=== PATIENT | female | born 1995 | race Caucasian/White ===

== ENCOUNTER 2017-09-06 08:52 | Emergency (ER) | payer MEDICAID, OTHER ==
[2017-09-06 08:52] VITALS: BMI 23.1
[2017-09-06 08:57] VITALS: TEMP 98.2
[2017-09-06] MEDS ORDERED: Sodium Chloride 0.9% 1,000 ML IV ONE (09:28)
[2017-09-06] MEDS ORDERED: Aluminum Hydroxide/Magnesium Hydroxide Susp (30 mL) PO STA (09:28)
[2017-09-06] MEDS ORDERED: Belladonna-Phenobarbital PO STA (09:28)
[2017-09-06 09:46] LABS: BASO % 0.4 % (0.0-2.0); EOS # 0.1 K/uL (0.0-0.7); EOS % 1.4 % (0.0-4.0); HEMOGLOBIN 12.9 g/dL (11.0-16.0); LYMPH # 2.2 K/uL (1.0-4.3); LYMPH % 34.1 % (20.0-40.0); MEAN CELL VOLUME 81.9 fL (81.0-99.0); MEAN CORPUSCULAR HEMOGLOBIN 28.6 pg (27.0-31.0); MEAN PLATELET VOLUME 7.6 fL (7.2-11.7); MONO # 0.4 K/uL (0.0-0.8); NEUT # 3.7 K/uL (1.8-7.0); NEUT % 58.1 % (50.0-75.0); NRBC % 0.1 % (0.0-2.0); RBC 4.52 Mil/uL (3.80-5.20); RED CELL DISTRIBUTION WIDTH 13.4 % (11.5-14.5); WHITE BLOOD COUNT 6.3 K/uL (4.8-10.8)
[2017-09-06] MEDS ORDERED: Sodium Chloride 0.9% 1,000 ML ONE (09:46)
[2017-09-06] MEDS ORDERED: Aluminum Hydroxide/Magnesium Hydroxide Susp (30 mL) ONE (09:46)
[2017-09-06] MEDS ORDERED: Belladonna-Phenobarbital ONE (09:46)
[2017-09-06 09:56] LABS: SQUAMOUS EPITHIAL 4 /hpf (0-5); URINE BILIRUBIN NEGATIVE (NEGATIVE); URINE BLOOD NEGATIVE (NEGATIVE); URINE CLARITY Hazy (Clear); URINE COLOR Yellow (YELLOW); URINE GLUCOSE (UA) NORMAL (Normal); URINE LEUKOCYTE ESTERASE NEG Leu/uL (Negative); URINE PROTEIN NEGATIVE (NEGATIVE); URINE UROBILINOGEN NORMAL mg/dL (0.2-1.0)
[2017-09-06 09:59] LABS: HCG,QUALITATIVE URINE NEGATIVE (NEGATIVE)
[2017-09-06 10:02] LABS: ALB/GLOB RATIO 1.2 (1.0-2.1); ALBUMIN 4.1 g/dL (3.5-5.0); ALT/SGPT 17 U/L (9-52); AST/SGOT 19 U/L (14-36); BLOOD UREA NITROGEN 7 mg/dL (7-17); CALCIUM 9.4 mg/dl (8.6-10.4); GFR AFRICAN-AMERICAN > 60; GFR NON-AFRICAN AMERICAN > 60; LIPASE 185 U/L (23-300)
--- NOTE | 2017-09-06 10:03 | C.PDOC ---
History Of Present Illness <Lashell Booth - Last Filed: 09/06/17 16:42> <Bimal Mayberry - Last Filed: 09/08/17 14:29> 22 years old female presents to ED for complaints of epigastric abdominal pain associated with nausea that began yesterday. Patient describes pain as burning, sharp and non radiating. Denies vomiting, fever, diarrhea, or urinary symptoms. 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 ( Lashell Booth) History Per: Patient History/Exam Limitations: no limitations Onset/Duration Of Symptoms: Hrs Current Symptoms Are (Timing): Still Present Location Of Pain/Discomfort: Epigastric Radiation Of Pain To:: None Quality Of Discomfort: Sharp, Burning Associated Symptoms: Nausea. denies: Fever, Chills, Vomiting, Diarrhea, Constipation, Urinary Symptoms Exacerbating Factors: None Alleviating Factors: None Last Bowel Movement: Today Recent travel outside of the [place]: No Abnormal Vaginal Bleeding: No <Lashell Booth - Last Filed: 09/06/17 16:42> <Bimal Mayberry - Last Filed: 09/08/17 14:29> Time Seen by Provider: 09/06/17 09:20 Chief Complaint (Nursing): Abdominal Pain Past Medical History Reviewed: Historical Data, Nursing Documentation, Vital Signs - Medical History PMH: No Chronic Diseases Family History: States: Unknown Family Hx - Social History Hx Tobacco Use: No Hx Alcohol Use: No Hx Substance Use: No - Immunization History Hx Tetanus Toxoid Vaccination: No Hx Influenza Vaccination: No Hx Pneumococcal Vaccination: No <Lashell Booth - Last Filed: 09/06/17 16:42> Vital Signs: Last Vital Signs Temp 98.2 F 09/06/17 08:54 Pulse 53 L 09/06/17 11:26 Resp 18 09/06/17 11:26 BP 106/62 09/06/17 11:26 Pulse Ox 99 09/06/17 16:44 - [facility] Procedures APPLICATION OF SPLINT (02/21/14) CLOSURE SKIN & SUBCUTANEOUS NEC (03/07/14) EXTRACTION OF POC, LOW CERVICAL, OPEN APPROACH (06/26/15) INTRODUCE OF OTH THERAP SUBST INTO FEM REPROD, VIA OPENING (06/26/15) Review Of Systems Constitutional: Negative for: Fever, Chills Gastrointestinal: Positive for: Nausea, Abdominal Pain (Epigastric ), Constipation. Negative for: Vomiting, Diarrhea, Rectal Pain Genitourinary: Negative for: Dysuria Skin: Negative for: Rash Neurological: Negative for: Weakness, Numbness <BoothLashell campa David - Last Filed: 09/06/17 16:42> Physical Exam - Physical Exam Appears: Well, Non-toxic, No Acute Distress Skin: Warm, Dry, No Rash Head: Atraumatic, Normacephalic Eye(s): bilateral: Normal Inspection, PERRL, EOMI Oral Mucosa: Moist Neck: Normal ROM Chest: Symmetrical, No Tenderness Cardiovascular: Rhythm Regular, No Murmur Respiratory: Normal Breath Sounds, No Decreased Breath Sounds, No Rales, No Rhonchi, No Wheezing Gastrointestinal/Abdominal: Bowel Sounds (Active), Soft, Tenderness (Mild of epigastric region with deep palpation), No Guarding Back: No CVA Tenderness Extremity: Normal ROM Extremity: Bilateral: Atraumatic, Normal Color And Temperature, Normal ROM Neurological/Psych: Oriented x3, Normal Speech Gait: Steady <LeobardoLashell L - Last Filed: 09/06/17 16:42> ED Course And Treatment - Laboratory Results Result Diagrams: 09/06/17 09:42 09/06/17 09:42 O2 Sat by Pulse Oximetry: 99 (RA) Pulse Ox Interpretation: Normal <Lashell Booth - Last Filed: 09/06/17 16:42> - Laboratory Results Result Diagrams: 09/06/17 09:42 09/06/17 09:42 <Bimal Mayberry - Last Filed: 09/08/17 14:29> Medical Decision Making: Impression: epigastric abdominal pain Plan: * Labs * Urine analysis * GI Cocktail, IV NS Progress: Labs reviewed showing no acute findings. No leukocytosis or electrolyte abnormality. Urine clear and negative Patient remained afebrile alert and oriented with stable vital signs during ER evaluation. Discussed results with patient, and copy of report was provided. On re-examination, patient is resting comfortably in no acute distress. Patient reports improvement of symptoms. Patient feels comfortable going home and will be discharged. Patient given follow up instructions. Instructed to return to ER if symptoms worsen or new symptoms arise. (Lashell Booth) Disposition Counseled Patient/Family Regarding: Diagnosis, Need For Followup, Rx Given - Disposition Disposition Time: 10:29 - POA Present On Arrival: None <Lashell Booth - Last Filed: 09/06/17 16:42> <Bimal Mayberry - Last Filed: 09/08/17 14:29> - Disposition Referrals: Lisa Mcmullen MD [Non-Staff] - Disposition: HOME/ ROUTINE Condition: IMPROVED Additional Instructions: Vaya a bennett mdico o la clnica en 2-5 rodrigues sin falta, para mas evaluacin. [place] los medicamentos paulo indicado. Volver a la kristine de emergencia en cualquier momento si los sntomas persisten o empeoran. Prescriptions: Famotidine [Pepcid] 20 mg PO DAILY #20 tab Polyethylene Glycol 3350 [Miralax] 17 gm PO ONCE PRN 2 Days #2 packet PRN Reason: Constipation Instructions: Constipation, Adult (DC), Acute Abdomen (Belly Pain), Adult (DC) Forms: [employer] (Tamazight) Print Language: ZAMBIAN - Clinical Impression Clinical Impression: Constipation, Abdominal pain - PA / WINDOW TRIMMER APPRENTICE / Resident Statement MD/ has reviewed & agrees with the documentation as recorded. - Scribe Statement The provider has reviewed the documentation as recorded by the Scribe <Lashell Booth - Last Filed: 09/06/17 16:42> - PA / WINDOW TRIMMER APPRENTICE / Resident Statement MARITO has reviewed & agrees with the documentation as recorded. <Bimal Mayberry - Last Filed: 09/08/17 14:29> - Scribe Statement Jarvis Bassett All medical record entries made by the Scribe were at my direction and personally dictated by me. I have reviewed the chart and agree that the record accurately reflects my personal performance of the history, physical exam, medical decision making, and the department course for this patient. I have also personally directed, reviewed, and agree with the discharge instructions and disposition. (Lashell Booth)
[2017-09-06 11:27] VITALS: BP 106/62; PULSE 53; RESP 18
[2017-09-06 16:44] VITALS: O2SAT 99
== END 2017-09-06 11:27 | disposition home or self-care (01) ==
LOC: C.ER 08:52
DX: R10.13 Epigastric pain (principal); K59.00 Constipation, unspecified
CPT/HCPCS: 80053; 81001; 83690; 84703; 85025; 96360; 99284; J7030

== ENCOUNTER 2018-01-03 10:06 | Emergency (ER) | payer MEDICAID ==
[2018-01-03 10:06] VITALS: BMI 23.1
[2018-01-03 10:14] VITALS: TEMP 98.2; O2SAT 97
[2018-01-03] MEDS ORDERED: Albuterol 0.083% Inhal Sol (2.5 mg/3 mL) UD IH STA (10:35)
--- NOTE | 2018-01-03 10:39 | C.PDOC ---
History Of Present Illness 22 yo female w/o significant PMHx come in for evaluation of nasla congestion runny nose, dry cough for past week. Pt reports, developed intermittent left sided, localized chest pain, worsen for past few days. Pt reports, CP worse with cough, movement and breathing. Otherwise, pt denies high fever, chills, headache, dizziness, SOB, dyspnea, palpitation, diaphoresis, abd. pain, V/D, back pian, UTi sx, denies lower legs pain or swelling, denies smoking, contraceptive use, denies recent hx of prolong immobilization. Ambulate to Ed for evaluation, not in any apparent distress. Time Seen by Provider: 01/03/18 10:23 Chief Complaint (Nursing): Breast Problem History Per: Patient Past Medical History Reviewed: Historical Data, Nursing Documentation, Vital Signs Vital Signs: Last Vital Signs Temp 98.2 F 01/03/18 10:11 Pulse 64 01/03/18 10:11 Resp 18 01/03/18 10:11 BP 125/75 01/03/18 10:11 Pulse Ox 97 01/03/18 10:11 - Medical History PMH: No Chronic Diseases Surgical History: No Surg Hx - [facility] Procedures APPLICATION OF SPLINT (02/21/14) CLOSURE SKIN & SUBCUTANEOUS NEC (03/07/14) EXTRACTION OF POC, LOW CERVICAL, OPEN APPROACH (06/26/15) INTRODUCE OF OTH THERAP SUBST INTO FEM REPROD, VIA OPENING (06/26/15) Family History: States: No Known Family Hx Denies: [place], CAD (zayda) - Social History Hx Tobacco Use: No Hx Alcohol Use: No Hx Substance Use: No - Immunization History Hx Tetanus Toxoid Vaccination: No Hx Influenza Vaccination: No Hx Pneumococcal Vaccination: No Review Of Systems Except As Marked, All Systems Reviewed And Found Negative. Constitutional: Negative for: Fever, Chills ENT: Positive for: Nose Discharge, Nose Congestion. Negative for: Ear Discharge, Throat Pain Cardiovascular: Positive for: Chest Pain. Negative for: Palpitations, Orthopnea, Paroxysmal Noc. Dyspnea, Edema, Light Headedness Respiratory: Positive for: Cough. Negative for: Shortness of Breath, SOB with Excertion, Pleuritic Pain, Sputum, Wheezing Gastrointestinal: Negative for: Nausea, Vomiting, Abdominal Pain, Diarrhea Genitourinary: Negative for: Dysuria Musculoskeletal: Negative for: Neck Pain Skin: Negative for: Rash Neurological: Negative for: Altered Mental Status, Headache, Dizziness Physical Exam - Physical Exam Appears: Well, Non-toxic, No Acute Distress Skin: Normal Color, Warm, Dry, No Rash Head: Normacephalic Eye(s): bilateral: PERRL Ear(s): Bilateral: Normal Nose: No Flaring, Discharge (B/L congestion with clear rhinorrhea) Oral Mucosa: Moist Tongue: Normal Appearing Lips: Normal Appearing Throat: Normal, No Erythema, No Drooling Neck: Trachea Midline, Supple Lymphatic: No Axilla Node Tenderness Chest: Symmetrical, No Deformity, Tenderness (reproducible over left anterior chest wall overlying 5-7 ointercostal spaces ( just below left nipple)), No Ecchymosis, No Subcutaneous Emphysema Cardiovascular: Rhythm Regular, No Murmur, No JVD, Other ((-) carotid bruits B/L) Respiratory: No Decreased Breath Sounds, No Accessory Muscle Use, No Stridor, No Wheezing Gastrointestinal/Abdominal: Soft, No Tenderness Back: No CVA Tenderness Extremity: Normal ROM, No Pedal Edema, No Calf Tenderness (B/L), No Deformity, No Swelling Neurological/Psych: Oriented x3, Normal Speech, Normal Motor, Normal Sensation, Normal Reflexes ED Course And Treatment ECG: Interpreted By Me, Viewed By Me ECG Rhythm: Sinus Rhythm ECG Interpretation: Normal Interpretation Of ECG: SR@61/min, NAD, no acute T wave or ST-T changes O2 Sat by Pulse Oximetry: 97 Pulse Ox Interpretation: Normal - Radiology CXR: Interpreted by Me, Viewed By Me, Read By Radiologist CXR Interpretation: Yes: No Acute Disease Progress Note: On re-evaluation, pt is afebrile, hemodynamicaly stable. Non- toxic. PulsEOx 97% RA. ENT: No acute changes. neck: Supple, (-) JVD, (-) carotid bruits B/L. CVS: (+)S1S2, reg, (-) murmur. Lungs: CTA B/L, BS equal B/l. Abd: benign, (-) guarding, (-) rebound. back: (-) CVA tenderness. neurologicaly intact. CXR, EKG review and appears without acute abnormalities. Pt has clinical finidngs c/w acute bronchitis, left sided reproducible CP, no risk factors for DVT/PE. Pt advised advised and ref. to F/u with PMD in 2-3 days for re-eval. return to ED if any worsening or new changes. Disposition Counseled Patient/Family Regarding: Studies Performed, Diagnosis, Need For Followup, Rx Given - Disposition Referrals: Lisa Mcmullen MD [Non-Staff] - Disposition: HOME/ ROUTINE Disposition Time: 11:01 Condition: STABLE Additional Instructions: Encourage fluids Avoid physical activity for 1 week, heavy lifting, etc. Take medication as prescribed Follow up with PMD in 2-3 days for re-evaluation. return to ED if any worsening or new changes. Prescriptions: Azithromycin [Zithromax] 250 mg PO DAILY #4 tab Methocarbamol [Robaxin] 500 mg PO TID #14 tab Prednisone [Deltasone] 20 mg PO DAILY #3 tablet Instructions: Chest Pain, Acute Bronchitis Forms: [facility] (Uruguayan), Work Excuse Print Language: MACEDONIAN - Clinical Impression Clinical Impression: Bronchitis, Chest pain, atypical
[2018-01-03] MEDS ORDERED: Albuterol 0.083% Inhal Sol (2.5 mg/3 mL) UD ONE (10:45)
--- NOTE | 2018-01-03 10:58 | RAD ---
HISTORY: Cough COMPARISON: None available. TECHNIQUE: Chest PA and lateral FINDINGS: LUNGS: No focal consolidation. Please note that chest x-ray has limited sensitivity for the detection of pulmonary masses. PLEURA: No significant pleural effusion identified. No definite pneumothorax . CARDIOVASCULAR: The cardiomediastinal silhouette appears within normal limits of size. OSSEOUS STRUCTURES: No acute osseous abnormality identified. VISUALIZED UPPER ABDOMEN: Unremarkable. OTHER FINDINGS: None. IMPRESSION: No focal consolidation, significant pleural effusion, or definite pneumothorax identified.
[2018-01-03 11:15] VITALS: BP 122/72; PULSE 85; RESP 20
--- NOTE | 2018-01-04 13:22 | CARD ---
APPROVED REPORT Date of service: 01/03/2018 EKG Measurement Heart [id number] <Conclusion> Normal sinus rhythm Normal ECG
== END 2018-01-03 11:15 | disposition home or self-care (01) ==
LOC: C.ER 10:06
DX: J40 Bronchitis, not specified as acute or chronic (principal); R07.89 Other chest pain

== ENCOUNTER 2018-04-10 09:19 | Emergency (ER) | payer MEDICAID ==
[2018-04-10 09:25] VITALS: BMI 22.3
[2018-04-10 09:27] VITALS: RESP 18; TEMP 97.3
--- NOTE | 2018-04-10 10:16 | C.PDOC ---
History Of Present Illness 22 year old female with PMHx of chronic left sided hearing loss (following with Dr. Dorman) presents to ED for complaints of sharp lower abdominal pain x 1 week. Associated intermittent vaginal bleeding. Patient reports LMP 1 week ago and she has had bleeding since then. Has not taken any medications for pain. Tolerating PO and having bowel movements per baseline. Denies fever, chills, N/V, diarrhea, constipation, chest pain, shortness of breath, dizziness, lightheadedness, urinary symptoms, vaginal odor or itching, back pain, neck pain, CP, shortness of breath, or any other associated symptoms. Time Seen by Provider: 04/10/18 09:40 Chief Complaint (Nursing): Abdominal Pain History Per: Patient History/Exam Limitations: no limitations Onset/Duration Of Symptoms: Hrs Current Symptoms Are (Timing): Still Present Location Of Pain/Discomfort: RLQ, LLQ, Suprapubic Quality Of Discomfort: Sharp Associated Symptoms: denies: Fever, Chills, Nausea, Vomiting, Diarrhea, Loss Of Appetite, Back Pain, Chest Pain, Constipation, Urinary Symptoms Exacerbating Factors: None Alleviating Factors: None Last Bowel Movement: Today Recent travel outside of the [place]: No Abnormal Vaginal Bleeding: Yes Past Medical History Reviewed: Historical Data, Nursing Documentation, Vital Signs Vital Signs: Last Vital Signs Temp 97.3 F L 04/10/18 09:25 Pulse 64 04/10/18 09:25 Resp 18 04/10/18 09:25 BP 113/70 04/10/18 09:25 Pulse Ox 98 04/10/18 09:25 - Medical History PMH: No Chronic Diseases Other PMH: Hearing Loss Surgical History: No Surg Hx - [facility] Procedures APPLICATION OF SPLINT (02/21/14) CLOSURE SKIN & SUBCUTANEOUS NEC (03/07/14) EXTRACTION OF POC, LOW CERVICAL, OPEN APPROACH (06/26/15) INTRODUCE OF OTH THERAP SUBST INTO FEM REPROD, VIA OPENING (06/26/15) Family History: States: Unknown Family Hx Denies: [place], CAD (zayda) - Social History Hx Tobacco Use: No Hx Alcohol Use: No Hx Substance Use: No - Immunization History Hx Tetanus Toxoid Vaccination: No Hx Influenza Vaccination: No Hx Pneumococcal Vaccination: No Review Of Systems Except As Marked, All Systems Reviewed And Found Negative. Constitutional: Negative for: Fever, Chills Eyes: Negative for: Vision Change ENT: Positive for: Other (Chronic Hearing Loss left ear). Negative for: Ear Pain, Nose Congestion Cardiovascular: Negative for: Chest Pain, Palpitations Respiratory: Negative for: Cough, Shortness of Breath Gastrointestinal: Positive for: Abdominal Pain. Negative for: Nausea, Vomiting, Diarrhea, Constipation Genitourinary: Positive for: Vaginal Bleeding. Negative for: Dysuria, Frequency, Incontinence, Hematuria Musculoskeletal: Negative for: Neck Pain, Back Pain Skin: Negative for: Rash Neurological: Negative for: Weakness, Numbness, Headache, Dizziness Physical Exam - Physical Exam Appears: Non-toxic, No Acute Distress Skin: Normal Color, Warm, Dry, No Rash Head: Atraumatic, Normacephalic Eye(s): bilateral: Normal Inspection, PERRL, EOMI Oral Mucosa: Moist Neck: Normal ROM, Supple Chest: Symmetrical, No Tenderness Cardiovascular: Rhythm Regular, No Murmur Respiratory: Normal Breath Sounds, No Rales, No Rhonchi, No Wheezing Gastrointestinal/Abdominal: Bowel Sounds (normoactive), Soft, Tenderness (LLQ and suprapubically ), No Distention, No Guarding, No Rebound Back: Normal Inspection, No CVA Tenderness Pelvic: Normal External Exam, Normal Bimanual Exam, Vaginal Bleeding, Vaginal Discharge (small amount yellow/white vaginal discharge), No Cervical Motion Tenderness, No Adnexal Tenderness Extremity: Normal ROM, Capillary Refill (<2s) Extremity: Bilateral: Atraumatic, No Pedal Edema, Normal Color And Temperature, Normal ROM Pulses: Left Radial: Normal, Right Radial: Normal Neurological/Psych: Oriented x3, Normal Speech, Normal Cognition, Normal Motor, Normal Sensation Gait: Steady ED Course And Treatment - Laboratory Results Result Diagrams: 04/10/18 11:00 04/10/18 11:00 O2 Sat by Pulse Oximetry: 98 (RA) Pulse Ox Interpretation: Normal - CT Scan/US Abdomen/Pelvis/Transvag US Other Rad Studies (CT/US): Read By Radiologist, Radiology Report Reviewed CT/US Interpretation: Date of service: 04/10/2018. HISTORY: vaginal bleeding, lower abdominal pain. COMPARISON: None available. TECHNIQUE: Real-time transabdominal pelvic ultrasound was performed. In addition a transvaginal pelvic ultrasound was necessary to better depict pelvic anatomy. FINDINGS: UTERUS: Measures 6.0 x 3.6 x 4.9 cm. Anteverted. ENDOMETRIUM: Measures 3 mm in diameter. CERVIX: No cervical abnormality identified. RIGHT OVARY: Measures 2.5 x 1.6 x 2.9 cm. Blood flow is demonstrated. 2.2 x 1.2 x 1.6 cm follicle/cyst. LEFT OVARY: Measures 1.7 x 1.2 x 1.9 cm. Blood flow is demonstrated. FREE FLUID: No significant free fluid noted. OTHER FINDINGS: None. IMPRESSION: No acute findings identified. This examination is predicated on a negative test. Correlate clinically. Medical Decision Making Medical Decision Making: Plan: * Blood work * Urinalysis, culture * GC/Chlamydia * POC preg * Transvaginal Pelvic US * IVF * Toradol * Azithromycin POC preg negative, notified by anival Major. 13:00 Patient persistently complaining of lower abdominal pain, states she is nauseous. She is tender in RLQ and LLQ with normal transvaginal ultrasound. Will get CT scan to rule out any dangerous intra-abdominal pathology. 13:25 Leaving AMA, states she cannot wait for CT scan, Zofran, or for her remaining IVF. Agreed to be treated empirically for GC/Chlamydia. Pt is PCN allergic, so will give 2grams of Azithromycin per Dr. Christopher. States she will followup with [facility], her primary, and Dr. Dorman. The patient is choosing to leave against medical advice. I have personally explained to the patient that choosing to do so may result in permanent bodily harm, disability, or . I have discussed at great length that without further evaluation and monitoring there may be unforeseen circumstances and/or deterioration causing permanent bodily harm or as a result of their choice. The patient is alert, oriented, and shows the mental capacity to make clear decisions regarding the patients health care at this time. The patient continues to wish to leave against medical advice. In light of the patients decision to leave against medical advice, follow-up has been arranged and the patient is aware of the importance to following up as instructed. The patient has been advised that they should return to the emergency room immediately if they change their mind at any time, or if their condition begins to change or worsen in any way. Disposition - Disposition Referrals: [facility] [Outside] [facility] [Outside] Disposition: AGAINST MEDICAL ADVICE Disposition Time: 13:25 Condition: STABLE Additional Instructions: Aumentar los fluidos ibuprofeno / tylenol para el dolor Sigue con el gineclogo maana Seguimiento con PMD dentro de 2 rodrigues Seguimiento con ENT segn lo programado Volver a la kristine de emergencias con cualquier sntoma nuevo o que empeora Instructions: Acute Abdomen (Belly Pain), Adult (DC), Heavy Periods, Leaving Against Medical Advice Forms: [facility] Inst [place], [facility] (Anguillan) Print Language: ALBANIAN - Clinical Impression Clinical Impression: Vaginal bleeding, Abdominal pain - PA / SUPERINTENDENT COMMISSARY / Resident Statement MD/DO has reviewed & agrees with the documentation as recorded. - Scribe Statement The provider has reviewed the documentation as recorded by the Scribe Jarvis Bassett All medical record entries made by the Scribe were at my direction and personally dictated by me. I have reviewed the chart and agree that the record accurately reflects my personal performance of the history, physical exam, medical decision making, and the department course for this patient. I have also personally directed, reviewed, and agree with the discharge instructions and disposition.
[2018-04-10] MEDS ORDERED: Sodium Chloride 0.9% 1,000 ML IV ONE (10:42)
[2018-04-10] MEDS ORDERED: Sodium Chloride 0.9% 1,000 ML ONE (11:02)
[2018-04-10 11:11] LABS: BASO % 0.4 % (0.0-2.0); EOS # 0.1 K/uL (0.0-0.7); EOS % 1.7 % (0.0-4.0); HEMOGLOBIN 13.4 g/dL (11.0-16.0); LYMPH # 2.4 K/uL (1.0-4.3); LYMPH % 38.8 % (20.0-40.0); MEAN CELL VOLUME 85.3 fL (81.0-99.0); MEAN CORPUSCULAR HEMOGLOBIN 29.2 pg (27.0-31.0); MEAN CORPUSCULAR HGB CONC 34.2 g/dL (33.0-37.0); MEAN PLATELET VOLUME 8.1 fL (7.2-11.7); MONO # 0.4 K/uL (0.0-0.8); MONO % 6.1 % (0.0-10.0); NEUT # 3.3 K/uL (1.8-7.0); NRBC % 0.1 % (0.0-2.0); RBC 4.59 Mil/uL (3.80-5.20); RED CELL DISTRIBUTION WIDTH 13.1 % (11.5-14.5); WHITE BLOOD COUNT 6.2 K/uL (4.8-10.8)
[2018-04-10 11:18] LABS: SQUAMOUS EPITHIAL 2 /hpf (0-5); URINE BILIRUBIN NEGATIVE (NEGATIVE); URINE BLOOD 1+ (NEGATIVE); URINE CLARITY Clear (Clear); URINE COLOR Yellow (YELLOW); URINE GLUCOSE (UA) NORMAL (Normal); URINE LEUKOCYTE ESTERASE NEG Leu/uL (Negative); URINE PROTEIN NEGATIVE (NEGATIVE); URINE UROBILINOGEN NORMAL mg/dL (0.2-1.0)
[2018-04-10 11:28] LABS: ALB/GLOB RATIO 1.7 (1.0-2.1); ALBUMIN 4.7 g/dL (3.5-5.0); ALT/SGPT 21 U/L (9-52); AST/SGOT 16 U/L (14-36); BLOOD UREA NITROGEN 12 mg/dL (7-17); GFR NON-AFRICAN AMERICAN > 60; LIPASE 192 U/L (23-300)
[2018-04-10 12:10] VITALS: BP 103/58; PULSE 90
--- NOTE | 2018-04-10 12:27 | US ---
Date of service: 04/10/2018 HISTORY: vaginal bleeding, lower abdominal pain COMPARISON: None available. TECHNIQUE: Real-time transabdominal pelvic ultrasound was performed. In addition a transvaginal pelvic ultrasound was necessary to better depict pelvic anatomy. FINDINGS: UTERUS: Measures 6.0 x 3.6 x 4.9 cm. Anteverted. ENDOMETRIUM: Measures 3 mm in diameter. CERVIX: No cervical abnormality identified. RIGHT OVARY: Measures 2.5 x 1.6 x 2.9 cm. Blood flow is demonstrated. 2.2 x 1.2 x 1.6 cm follicle/cyst. LEFT OVARY: Measures 1.7 x 1.2 x 1.9 cm. Blood flow is demonstrated. FREE FLUID: No significant free fluid noted. OTHER FINDINGS: None. IMPRESSION: No acute findings identified. This examination is predicated on a negative test. Correlate clinically.
[2018-04-10 13:29] VITALS: O2SAT 98
== END 2018-04-10 15:30 | disposition left against medical advice (07) ==
LOC: C.ER 09:19
DX: R10.32 Left lower quadrant pain (principal); N93.9 Abnormal uterine and vaginal bleeding, unspecified
CPT/HCPCS: 76830; 76856; 80053; 81001; 83690; 85025; 87491; 87591; 96361; 96374; 99284; J1885; J7030

== ENCOUNTER 2018-04-25 11:51 | Outpatient (CLI) | payer MEDICAID | END 2018-05-03 11:30 | disposition home or self-care (01) | LOC: C.MRIC 05-03 11:29 | DX: H91.90 Unspecified hearing loss, unspecified ear (principal) ==

== ENCOUNTER 2018-04-25 14:33 | Outpatient (CLI) | payer MEDICAID | END 2018-04-25 14:34 | disposition home or self-care (01) | LOC: C.LAB 14:33 ==